=== PATIENT | female | born 1975 | race Caucasian/White ===

== ENCOUNTER 2019-02-14 13:40 | Emergency (ER) | payer BC, SELFPAY ==
[2019-02-14] VITALS (14 sets, daily range): BP systolic 160–187; BP diastolic 81–119; PULSE 71–93; RESP 11–26; TEMP 35.7; O2SAT 94–100; BMI 39.6
--- NOTE | 2019-02-14 13:43 | ED.RN ---
COULD NOT OBTAIN BLOOD PRESSURE IN TRIAGE PATIENT IS IN TOO MUCH PAIN
--- NOTE | 2019-02-14 13:54 | RAD_ITS ---
STUDY: X-RAY - RIGHT ELBOW REASON FOR EXAM: Female, 43 years old. Shoulder pain. Fall. TECHNIQUE: 3 view(s) of the elbow. COMPARISON: None. FINDINGS: No acute fracture, dislocation or osseous destruction. Minimal spurring at the lateral of the condyle. No significant soft tissue swelling. No significant joint effusion. RAD/Elbow min 3 Views IMPRESSION: Right elbow intact Electronically Signed: Edison Sosa DO at 14:45 EDT Tel , Service support ,
--- NOTE | 2019-02-14 13:54 | RAD_ITS ---
STUDY: X-RAY - RIGHT SHOULDER REASON FOR EXAM: Female, 43 years old. Shoulder pain. Fall. TECHNIQUE: 2 view(s) of the shoulder. COMPARISON: None. FINDINGS: Acute anterior shoulder dislocation. No acute fracture line. No acute cortical destruction. No significant degenerative changes. No significant soft tissue swelling. Visualized right lung unremarkable. RAD/Shoulder min 2 Views IMPRESSION: Acute right anterior shoulder dislocation Electronically Signed: Edison Sosa DO at 14:46 EDT Tel , Service support ,
--- NOTE | 2019-02-14 13:54 | ED.VIS.UPPEX ---
History of Present Illness Chief Complaint: Upper Extremity Injury Informant: Patient Occurred: Today - FERNANDO Mechanism/Context: Injury, Fall Context: Sudden Onset Timing: Continuous Location: R shoulder and elbow Current Severity: Severe Maximum Severity: Severe Worsened by: moving Relieved by: remaining still Associated Symptoms: Loss of Funtion. Negative for: Parasthesia, Weakness Narrative: Patient states she tripped on concrete when her ankle gave out on the way out of work today, falling to her right shoulder with severe acute pain. Also in her elbow. No numbness. No other injury. She states she has had multiple falls in the last several months, she has never had any prodromal symptoms of dizziness, chest discomfort, shortness of breath, or vertigo. RHD. - Past Medical History (1) Depression Status: Chronic (2) Diabetes mellitus, type 2 Status: Chronic (3) GERD (gastroesophageal reflux disease) Status: Chronic Past Medical History - Allergies and Home Meds Allergies/Adverse Reactions: Allergies No Known Allergies Allergy (Verified 02/14/19 14:19) Primary Care Physician: Alex Cavazos MD [STAFF PHYSICIAN] - As soon as possible (Call for appointment to be seen within the next 1-2 weeks) Lives: With Family Smoking Status: Never smoker Drugs: None Review of Systems General: Denies: Chills, Fever, Sweats Eyes: Denies: Visual changes - bilaterally, Diplopia ENT: Denies: Rhinorrhea, Sore throat Cardiovascular: Denies: Chest pain, Palpitations Respiratory: Denies: Dyspnea, Cough, Dyspnea on exertion Gastrointestinal: Denies: Abdominal pain, Nausea, Vomiting, Diarrhea, Melena, Hematochezia Genitourinary: Denies: Dysuria, Hematuria, Frequency Musculoskeletal: Reports: Extremity Pain. Denies: Neck pain, Back pain Skin: Denies: Rash, Wounds Neurological: Denies: Headache, Weakness, Numbness Physical Exam Vital Signs/Narrative: Vital Signs Temp Pulse Resp Pulse Ox 02/14/19 13:40 96.3 F L 71 22 H 100 Inital Vital Signs reviewed: Yes Right Shoulder: Limited ROM - holding in position of comfort. cannot move. sensation lateral shoulder intact. unable to rule out deformity due to obesity. Right Elbow: Limited ROM - tender mildly diffusely. painless sup/pron. General: Well nourished, Well developed, Obese Head: Normocephalic, Atraumatic Eyes: Perrl, EOMI ENT: No Trauma, Moist Mucous Membranes Neck: Nontender, Full ROM. Negative for: Spinal Tenderness Cardiovascular: Regular rate, Regular rhythm, No murmurs Respiratory: No distress, CTA bilaterally, Chest nontender - including clavicle and ACJ on right. Skin: Normal color, No rash, No Trauma Neurological: Alert, Oriented x3, Cranial nerves II-XII grossly intact, Normal Strength, Normal Sensation Psychological: Normal affect Diagnostic/Tx/Re-eval Clinical Impression(s) from Imaging Studies Elbow X-Ray 02/14/19 13:54 IMPRESSION: Right elbow intact Electronically Signed: Edison Sosa DO at 14:45 EDT Tel , Service support , Shoulder X-Ray 02/14/19 13:54 IMPRESSION: Acute right anterior shoulder dislocation Electronically Signed: Edison Sosa DO at 14:46 EDT Tel , Service support , Shoulder X-Ray 02/14/19 16:01 IMPRESSION: Stable anterior and inferior dislocation of the humeral head relative to the glenoid. Electronically Signed: Tr Newberry, at 16:47 EDT Tel , Service support , Shoulder X-Ray 02/14/19 16:20 IMPRESSION: Stable anterior and inferior dislocation of the humeral head relative to the glenoid. Electronically Signed: Tr Newberry, at 16:47 EDT Tel , Service support , Shoulder X-Ray 02/14/19 17:01 IMPRESSION: Status post reduction of the previously seen right shoulder dislocation with satisfactory alignment. Electronically Signed: Tr Newberry, at 18:00 EDT Tel , Service support , - Medical Decision Making Initial x-rays of the shoulder and elbow were obtained and showed no fractures but the shoulder is dislocated anteriorly. As described in the procedures, procedural sedation with propofol went uneventfully, however the good tactile feedback from the closed reduction falsely indicated successful reduction x2. A third attempt was necessary and reduction is complete. She is neurovascularly intact distally. She will be discharged home with a prescription for Percocet and follow-up with orthopedics. Procedures Procedure(s): 1. Procedural sedation --just over 1 mg/kg of IV propofol administered each of 3 times, after patient was n.p.o. for over 6 hours. Patient was monitored and with oxygen with constant nursing supervision. There were no complications and the patient awoke a short time after each procedure. 2. Closed right shoulder reduction --after patient was sedated, I was able to easily reduce the right shoulder using the Milch procedure on first attempt. There was good tactile feedback with a clunk. However, x-ray showed that the humeral head was not reduced. We repeated the procedure, sedating her again, this time performing traction-countertraction, with the same result in good tactile feedback, but by the time post reduction was obtained the patient woke up and again showed that it was not reduced. We performed this a third time with x-ray at the bedside, the reduction took very little force with distraction manually, and x-ray shows good reduction. Placed in sling and swath. Upon waking up after the third attempt, patient can tell that it feels much better. Neurovascularly intact distally after placement in sling, including axillary nerve distribution. ED Disposition - Plan for ED Patient: Disposition: Home or Assisted Living Diagnosis: Closed anterior dislocation of right shoulder Instructions: ED Dislocation Shoulder Redu Prescriptions: Oxycodone HCl/Acetaminophen [Percocet 5/325] 1 tablet PO Q6H PRN PRN 3 Days #12 tablet PRN Reason: Pain Referrals: Alex Cavazos MD [STAFF PHYSICIAN] - As soon as possible (Call for appointment to be seen within the next 1-2 weeks)
--- NOTE | 2019-02-14 14:12 | ED.DCSUM_ITS ---
History of Present Illness Chief Complaint: Upper Extremity Injury Informant: Patient Occurred: Today - FERNANDO Mechanism/Context: Injury, Fall Context: Sudden Onset Timing: Continuous Location: R shoulder and elbow Current Severity: Severe Maximum Severity: Severe Worsened by: moving Relieved by: remaining still Associated Symptoms: Loss of Funtion. Negative for: Parasthesia, Weakness Narrative: Patient states she tripped on concrete when her ankle gave out on the way out of work today, falling to her right shoulder with severe acute pain. Also in her elbow. No numbness. No other injury. She states she has had multiple falls in the last several months, she has never had any prodromal symptoms of dizziness, chest discomfort, shortness of breath, or vertigo. RHD. - Past Medical History (1) Depression Status: Chronic (2) Diabetes mellitus, type 2 Status: Chronic (3) GERD (gastroesophageal reflux disease) Status: Chronic Past Medical History - Allergies and Home Meds Allergies/Adverse Reactions: Allergies No Known Allergies Allergy (Verified 02/14/19 14:19) Primary Care Physician: Alex Cavazos MD [STAFF PHYSICIAN] - As soon as possible (Call for appointment to be seen within the next 1-2 weeks) Lives: With Family Smoking Status: Never smoker Drugs: None Review of Systems General: Denies: Chills, Fever, Sweats Eyes: Denies: Visual changes - bilaterally, Diplopia ENT: Denies: Rhinorrhea, Sore throat Cardiovascular: Denies: Chest pain, Palpitations Respiratory: Denies: Dyspnea, Cough, Dyspnea on exertion Gastrointestinal: Denies: Abdominal pain, Nausea, Vomiting, Diarrhea, Melena, Hematochezia Genitourinary: Denies: Dysuria, Hematuria, Frequency Musculoskeletal: Reports: Extremity Pain. Denies: Neck pain, Back pain Skin: Denies: Rash, Wounds Neurological: Denies: Headache, Weakness, Numbness Physical Exam Vital Signs/Narrative: Vital Signs Temp Pulse Resp Pulse Ox 02/14/19 13:40 96.3 F L 71 22 H 100 Inital Vital Signs reviewed: Yes Right Shoulder: Limited ROM - holding in position of comfort. cannot move. sensation lateral shoulder intact. unable to rule out deformity due to obesity. Right Elbow: Limited ROM - tender mildly diffusely. painless sup/pron. General: Well nourished, Well developed, Obese Head: Normocephalic, Atraumatic Eyes: Perrl, EOMI ENT: No Trauma, Moist Mucous Membranes Neck: Nontender, Full ROM. Negative for: Spinal Tenderness Cardiovascular: Regular rate, Regular rhythm, No murmurs Respiratory: No distress, CTA bilaterally, Chest nontender - including clavicle and ACJ on right. Skin: Normal color, No rash, No Trauma Neurological: Alert, Oriented x3, Cranial nerves II-XII grossly intact, Normal Strength, Normal Sensation Psychological: Normal affect Diagnostic/Tx/Re-eval Clinical Impression(s) from Imaging Studies Elbow X-Ray 02/14/19 13:54 IMPRESSION: Right elbow intact Electronically Signed: Edison Sosa DO at 14:45 EDT Tel , Service support , Shoulder X-Ray 02/14/19 13:54 IMPRESSION: Acute right anterior shoulder dislocation Electronically Signed: Edison Sosa DO at 14:46 EDT Tel , Service support , Shoulder X-Ray 02/14/19 16:01 IMPRESSION: Stable anterior and inferior dislocation of the humeral head relative to the glenoid. Electronically Signed: Tr Newberry, at 16:47 EDT Tel , Service support , Shoulder X-Ray 02/14/19 16:20 IMPRESSION: Stable anterior and inferior dislocation of the humeral head relative to the glenoid. Electronically Signed: Tr Newberry, at 16:47 EDT Tel , Service support , Shoulder X-Ray 02/14/19 17:01 IMPRESSION: Status post reduction of the previously seen right shoulder dislocation with satisfactory alignment. Electronically Signed: Tr Newberry, at 18:00 EDT Tel , Service support , - Medical Decision Making Initial x-rays of the shoulder and elbow were obtained and showed no fractures but the shoulder is dislocated anteriorly. As described in the procedures, procedural sedation with propofol went uneventfully, however the good tactile feedback from the closed reduction falsely indicated successful reduction x2. A third attempt was necessary and reduction is complete. She is neurovascularly intact distally. She will be discharged home with a prescription for Percocet and follow-up with orthopedics. Procedures Procedure(s): 1. Procedural sedation --just over 1 mg/kg of IV propofol administered each of 3 times, after patient was n.p.o. for over 6 hours. Patient was monitored and with oxygen with constant nursing supervision. There were no complications and the patient awoke a short time after each procedure. 2. Closed right shoulder reduction --after patient was sedated, I was able to easily reduce the right shoulder using the Milch procedure on first attempt. There was good tactile feedback with a clunk. However, x-ray showed that the humeral head was not reduced. We repeated the procedure, sedating her again, this time performing traction-countertraction, with the same result in good tactile feedback, but by the time post reduction was obtained the patient woke up and again showed that it was not reduced. We performed this a third time with x-ray at the bedside, the reduction took very little force with distraction manually, and x-ray shows good reduction. Placed in sling and swath. Upon waking up after the third attempt, patient can tell that it feels much better. Neurovascularly intact distally after placement in sling, including axillary nerve distribution. ED Disposition - Plan for ED Patient: Disposition: Home or Assisted Living Diagnosis: Closed anterior dislocation of right shoulder Instructions: ED Dislocation Shoulder Redu Prescriptions: Oxycodone HCl/Acetaminophen [Percocet 5/325] 1 tablet PO Q6H PRN PRN 3 Days #12 tablet PRN Reason: Pain Referrals: Alex Cavazos MD [STAFF PHYSICIAN] - As soon as possible (Call for appointment to be seen within the next 1-2 weeks)
[2019-02-14] MEDS: Ondansetron 4 MG/2 ML Vial IV (14:13)
[2019-02-14] MEDS: Morphine 4 MG/ML Syringe IV ×2 (14:13→16:38)
--- NOTE | 2019-02-14 16:01 | RAD_ITS ---
STUDY: X-RAY - RIGHT SHOULDER REASON FOR EXAM: Female, 43 years old. Post reduction TECHNIQUE: 1 view(s) of the shoulder. COMPARISON: 02/14/2019 FINDINGS: Again noted is anterior and inferior dislocation of the humeral head relative to the glenoid. There is no fracture identified. There are no radiodense foreign bodies. RAD/Shoulder One View IMPRESSION: Stable anterior and inferior dislocation of the humeral head relative to the glenoid. Electronically Signed: Tr Newberry, at 16:47 EDT Tel , Service support ,
[2019-02-14] MEDS: Propofol 200 MG/20 ML Vial IV BOLUS (16:05)
--- NOTE | 2019-02-14 16:20 | RAD_ITS ---
STUDY: X-RAY - RIGHT SHOULDER REASON FOR EXAM: Female, 43 years old. Post reduction TECHNIQUE: 1 view(s) of the shoulder. COMPARISON: 02/14/2019 FINDINGS: Again noted is anterior and inferior dislocation of the humeral head relative to the glenoid There is no fracture identified. There are no radiodense foreign bodies. RAD/Shoulder One View IMPRESSION: Stable anterior and inferior dislocation of the humeral head relative to the glenoid. Electronically Signed: Tr Newberry, at 16:47 EDT Tel , Service support ,
--- NOTE | 2019-02-14 17:01 | RAD_ITS ---
STUDY: X-RAY - RIGHT SHOULDER REASON FOR EXAM: Female, 43 years old. Post reduction TECHNIQUE: 1 view(s) of the shoulder. COMPARISON: 02/14/2019 FINDINGS: The previously seen right shoulder dislocation has been reduced. The alignment is satisfactory. There is no fracture identified. RAD/Shoulder One View IMPRESSION: Status post reduction of the previously seen right shoulder dislocation with satisfactory alignment. Electronically Signed: Tr Newberry, at 18:00 EDT Tel , Service support ,
== END 2019-02-14 18:16 | disposition home or self-care (01) ==
PROVIDERS: Emergency Provider Emergency Medicine; Family Provider Family Medicine; PCP Family Medicine
DX: S43.014A Anterior dislocation of right humerus, initial encounter (principal); E11.9 Type 2 diabetes mellitus without complications; K21.9 Gastro-esophageal reflux disease without esophagitis; F32.9 Major depressive disorder, single episode, unspecified; Z79.84 Long term (current) use of oral hypoglycemic drugs; Z79.899 Other long term (current) drug therapy; W01.0XXA Fall on same level from slipping, tripping and stumbling without subsequent striking against object, initial encounter; Y93.01 Activity, walking, marching and hiking; Y92.89 Other specified places as the place of occurrence of the external cause; Y99.8 Other external cause status
CPT/HCPCS: 23650; 73020; 73030; 73080; 96374; 96375; 96376; 99285; J7030; A4216; J2405

== ENCOUNTER 2019-09-06 12:36 | Emergency (ER) | payer BC, SELFPAY ==
[2019-02-14 13:40] VITALS: BMI 39.6
[2019-09-06 12:37] VITALS: BP 156/88; PULSE 79; RESP 16; TEMP 36.4; O2SAT 98; BMI 39.3
--- NOTE | 2019-09-06 13:05 | CT_ITS ---
STUDY: CT BRAIN WITHOUT CONTRAST REASON FOR EXAM: Female, 44 years old. Injury to the right side of the head following a fall RADIATION DOSAGE (If Supplied By Facility): CTDIvol = ( 44.99 ) mGy, DLP = ( 745.49 ) mGycm TECHNIQUE: Transaxial CT imaging of the brain was performed without administration of intravenous contrast material. Individualized dose optimization techniques were used for this CT. COMPARISON: No relevant priors. FINDINGS: Normal soft tissue structures. Normal calvarium. Normal size ventricles and extra-axial spaces for the patient''s age. Normal white matter tracts of the cerebral hemispheres. Normal basal ganglia and thalami. Normal brainstem. Normal cerebellum. There is no intracranial hemorrhage. There are no findings of an acute ischemic infarction. Normal visualized paranasal sinuses. CT/Brain/Head without Contrast IMPRESSION: Normal unenhanced CT scan of the brain. Electronically Signed: Fawad Ivesron, at 13:45 EST , Service support ,
--- NOTE | 2019-09-06 13:08 | ED.VIS.GEN ---
History of Present Illness Chief Complaint: Head Injury Informant: Patient Onset: Yesterday Current Severity: Mild Narrative: Head injury after fall yesterday Patient indicates she stumbled and fell yesterday striking part of her car she has pain to the right frontal area, she had no LOC she has no neck pain no nausea vomiting no change in vision no numbness weakness paresthesias Taking anti-inflammatory medications reports that helps her pain but she feels the pain has not moved from the right forehead area to the left forehead area she has a prior history for gastric sleeve otherwise has been healthy no other complaints Past Medical History - Allergies and Home Meds Allergies/Adverse Reactions: Allergies No Known Allergies Allergy (Verified 02/14/19 14:19) Primary Care Physician: John Simon MD [Primary Care Provider] - Past Medical History: - - gastric sleeve Smoking Status: Never smoker Review of Systems General: Reports: - - Her complaint is pain to the right frontal area otherwise HEENT exam neuro exam negative. Denies: Chills, Fever, Sweats Eyes: Denies: Visual changes - bilaterally, Diplopia ENT: Denies: Rhinorrhea, Sore throat Cardiovascular: Denies: Chest pain, Palpitations Respiratory: Denies: Dyspnea, Cough, Dyspnea on exertion Gastrointestinal: Denies: Abdominal pain, Nausea, Vomiting, Diarrhea, Melena, Hematochezia Genitourinary: Denies: Dysuria, Hematuria, Frequency Musculoskeletal: Denies: Back pain, Extremity Pain Skin: Denies: Rash, Wounds Neurological: Denies: Headache, Weakness, Numbness Physical Exam Vital Signs/Narrative: Vital Signs Temp Pulse Resp BP Pulse Ox 09/06/19 12:37 97.5 F L 79 16 156/88 H 98 General: Well nourished, Well developed, No Acute Distress Head: Normocephalic, Atraumatic, - - Chest discomfort to palpation over the right frontal area of the HEENT exam is otherwise unremarkable her neck is nontender her neurologic exam is entirely normal Eyes: Perrl, EOMI ENT: Moist mucous membranes, No rhinorrhea Neck: Supple, Nontender Cardiovascular: Regular rate, Regular rhythm, No murmurs Respiratory: No distress, CTA bilaterally, Chest nontender Abdomen: Soft, Nontender, Nondistended, Normal bowel sounds Back: Nontender, Normal Inspection Extremities: Nontender, No edema Skin: Normal color, No rash Neurological: Alert, Oriented x3, Cranial nerves II-XII grossly intact, Normal Strength, Normal Sensation Psychological: Normal affect, Normal Mood Diagnostic/Tx/Re-eval - Medical Decision Making Given all of the above and her description we will obtain CT of the head she has no neck tenderness to palpation or movement she is concerned about the persistence of the headache and I explained to her that given the mechanism the CT ordered to look for signs of injury is unremarkable it would generally be safe to have her follow-up as an outpatient she concurs with that she indicates that the nonsteroidals are helping but she is taking quite a few of them so we will add [place] to use as a rescue medicine at bedtime ice to the head and have her follow-up with her physicians ED Disposition - Plan for ED Patient: Referrals: John Simon MD [Primary Care Provider] -
[2019-09-06 14:21] VITALS: PULSE 77; RESP 18
== END 2019-09-06 14:22 | disposition home or self-care (01) ==
PROVIDERS: Emergency Provider Emergency Medicine; Family Provider Family Medicine; PCP Family Medicine
DX: S09.90XA Unspecified injury of head, initial encounter (principal); W01.198A Fall on same level from slipping, tripping and stumbling with subsequent striking against other object, initial encounter; Y93.89 Activity, other specified; Y92.89 Other specified places as the place of occurrence of the external cause; Y99.8 Other external cause status
CPT/HCPCS: 70450; 99283

== ENCOUNTER → 2019-11-02 08:22 | Outpatient (CLI) | payer BC, SELFPAY ==
[2019-10-31 14:09] VITALS: BMI 39.3
[2019-11-02 12:36] LABS: Absolute Lymphocyte Count 2.98 X10^3/uL (0.83-4.51); Absolute Neutrophil Count 4.4 X10^3/uL (2.0-7.7); Basophil# 0.08 X10^3/uL; Eosinophil# 0.14 X10^3/uL; Eosinophils% 1.7 % (0-5); Hematocrit 39.3 % (37-47); Hemoglobin 11.8 g/dL (12.0-15.0); Lymphocyte # 2.98 X10^3/ul (4.0); Lymphocyte % 36.2 % (19-41); Mean Corpuscular Hgb 23.8 pg (27.0-32.0); Mean Corpuscular Volume 79.2 fL (81-99); Mean Platelet Vol. 10.9 fl (6.2-12.0); Monocyte# 0.62 X10^3/uL; Monocyte% 7.5 % (0-10); NRBC Flagged by Analyzer 0 % (0-5); Neutrophil # 4.38 X10^3/uL (2.7-7.7); Neutrophil % 53.2 % (47-70); Platelet Count 405 K/mm3 (150-450); RBC Distribution Width CV 16.5 % (11.6-14.6); RBC Distribution Width SD 46.9 fl (35.1-43.9); Red Blood Count 4.96 M/mm3 (4.2-5.4); White Blood Count 8.2 K/mm3 (4.4-11.0)
[2019-11-02 12:55] LABS: Hemoglobin A1c 6.5 % (4.2-6.3)
[2019-11-02 13:20] LABS: ALB/GLOB Ratio 1.1 RATIO (0.9-2.4); AST(SGOT) 16 U/L (15-37); Alanine Aminotransfer ALT/SGPT 28 U/L (13-56); Albumin, Serum 3.6 g/dL (3.2-5.0); Alkaline Phosphatase 54 U/L (45-117); Anion Gap 5 (5-15); BUN 16 mg/dL (7-18); BUN/Creat Ratio 17.7 RATIO (10-20); Chloride 106 mmol/L (98-107); Cholesterol 208 mg/dL (200); EST Glomerular Filtration Rate 71 mL/min (>60); Est Glom Filt Rate - Afr Amer 86 mL/min (>60); Globulin 3.3 g/dL (2.2-4.2); Glucose 119 mg/dL (74-106); High Density Lipoprotein 52 mg/dL; Potassium 4.4 mmol/L (3.5-5.1); Protein, Total 6.9 g/dL (6.4-8.2); Sodium Level 139 mmol/L (136-145); Thyroid Stim Hormone (TSH) 1.18 uIU/mL (0.358-3.74); Triglycerides 185 mg/dL; Very Low Density Lipoprotein 37 mg/dL (5-40)
[2019-11-02 13:35] LABS: Microalbumin,Random Urine 7.5 mg/L (NO RANGE EST.); Microalbumin:Creatinine Ratio 4.6 mg/g CRE (<30 mg/g CRE)
== END ==
PROVIDERS: PCP Internal Medicine; Referring Provider Internal Medicine; Visit Provider Internal Medicine
DX: I10 Essential (primary) hypertension (principal); K21.9 Gastro-esophageal reflux disease without esophagitis; E11.9 Type 2 diabetes mellitus without complications; Z13.29 Encounter for screening for other suspected endocrine disorder
CPT/HCPCS: 36415; 80053; 80061; 82043; 82570; 83036; 84439; 84443; 85025

== ENCOUNTER → 2019-11-21 10:56 | Outpatient (CLI) | payer BC, SELFPAY ==
[2019-10-31 14:09] VITALS: BMI 39.3
== END ==
PROVIDERS: PCP Internal Medicine; Referring Provider Internal Medicine; Visit Provider Internal Medicine
DX: G47.10 Hypersomnia, unspecified (principal)
CPT/HCPCS: 95806

== ENCOUNTER → 2020-01-29 | Outpatient (CLI) | payer BC, SELFPAY ==
[2019-12-07 13:02] VITALS: BMI 39.3
[2020-01-29 10:07] VITALS: BMI 39.3
== END | disposition home or self-care (01) ==
LOC: SL 13:00
PROVIDERS: PCP Internal Medicine; Visit Provider Nurse Practitioner Acute Care
DX: Z46.89 Encounter for fitting and adjustment of other specified devices (principal)

== ENCOUNTER → 2020-01-30 17:31 | Outpatient (CLI) | payer BC, SELFPAY ==
[2019-12-07 13:02] VITALS: BMI 39.3
[2020-01-29 10:07] VITALS: BMI 39.3
== END ==
PROVIDERS: PCP Internal Medicine; Visit Provider Nurse Practitioner Acute Care
DX: Z46.89 Encounter for fitting and adjustment of other specified devices (principal)

== ENCOUNTER → 2020-04-14 | Outpatient (CLI) | payer BC, SELFPAY ==
[2020-02-13 10:58] VITALS: BMI 39.3
[2020-04-14 15:29] LABS: Anion Gap 5 (5-15); BUN 12 mg/dL (7-18); BUN/Creat Ratio 13.2 RATIO (10-20); Calcium,Total 8.7 mg/dL (8.5-10.1); Chloride 109 mmol/L (98-107); Creatinine, Serum 0.91 mg/dL (0.55-1.02); EST Glomerular Filtration Rate 71 mL/min (>60); Est Glom Filt Rate - Afr Amer 86 mL/min (>60); Glucose 177 mg/dL (74-106); Potassium 4.3 mmol/L (3.5-5.1); Sodium Level 138 mmol/L (136-145)
== END | disposition home or self-care (01) ==
LOC: BIMLAB 13:19
PROVIDERS: PCP Internal Medicine; Referring Provider Internal Medicine; Visit Provider Internal Medicine
DX: I10 Essential (primary) hypertension (principal)
CPT/HCPCS: 36415; 80048

== ENCOUNTER → 2021-02-16 10:14 | Outpatient (CLI) | payer BC, SELFPAY ==
[2021-02-06 14:22] VITALS: BMI 39.0
--- NOTE | 2021-02-16 10:14 | US_ITS ---
STUDY: ULTRASOUND - URINARY BLADDER REASON FOR EXAM: Female, 45 years old. Incomplete Emptying TECHNIQUE: Ultrasound evaluation of the urinary bladder was performed with real-time and static lino-scale imaging. COMPARISON: None. FINDINGS: There is no right UVJ calculus. There is a visualized right ureteral jet. There is no left UVJ calculus. There is a visualized left ureteral jet. The distended volume of the urinary bladder is 149.86 ml. The empty volume of the urinary bladder is 10.29 ml. The bladder wall is within normal limits. The bladder wall measures 3 mm. There is no demonstrated bladder wall mass lesion. There are no demonstrated bladder calculi. US/Post Void Residual Bladder IMPRESSION: No suspicious sonographic findings, minimal post void residual, not enough to place patient at risk for urinary reflux or UTIs. Electronically Signed: Elliott Ware MD at 11:59 EDT , Service support ,
== END ==
PROVIDERS: PCP Internal Medicine; Referring Provider Internal Medicine; Visit Provider Internal Medicine
DX: R33.9 Retention of urine, unspecified (principal)
CPT/HCPCS: 51798

== ENCOUNTER → 2021-05-04 12:04 | Outpatient (CLI) | payer BC, SELFPAY ==
[2021-05-04 11:31] VITALS: BMI 39.0
[2021-05-04 15:06] LABS: Absolute Lymphocyte Count 3.78 X10^3/uL (0.83-4.51); Absolute Neutrophil Count 4.8 X10^3/uL (2.0-7.7); Basophil# 0.07 X10^3/uL; Basophil% 0.7 % (0-1); Eosinophil# 0.13 X10^3/uL; Eosinophils% 1.4 % (0-5); Hemoglobin 12.4 g/dL (12.0-15.0); Lymphocyte # 3.78 X10^3/ul (0.83-4.51); Lymphocyte % 40.3 % (19-41); Mean Corp Hgb Conc 30.2 g/dL (32-36); Mean Corpuscular Hgb 24.7 pg (27.0-32.0); Mean Corpuscular Volume 81.5 fL (81-99); Mean Platelet Vol. 11.5 fl (6.2-12.0); Monocyte# 0.56 X10^3/uL; NRBC Flagged by Analyzer 0 % (0-5); Neutrophil # 4.78 X10^3/uL (2.7-7.7); Neutrophil % 51.1 % (47-70); Platelet Count 437 K/mm3 (150-450); RBC Distribution Width CV 15.9 % (11.6-14.6); RBC Distribution Width SD 46.6 fl (35.1-43.9); Red Blood Count 5.03 M/mm3 (4.2-5.4); White Blood Count 9.4 K/mm3 (4.4-11.0)
[2021-05-04 15:18] LABS: AST(SGOT) 20 U/L (15-37); Alanine Aminotransfer ALT/SGPT 39 U/L (13-56); Albumin, Serum 3.7 g/dL (3.2-5.0); Alkaline Phosphatase 62 U/L (45-117); Anion Gap 4 (5-15); BUN 16 mg/dL (7-18); BUN/Creat Ratio 18.1 RATIO (10-20); Chloride 103 mmol/L (98-107); Cholesterol 217 mg/dL (200); Creatinine, Serum 0.88 mg/dL (0.55-1.02); EST Glomerular Filtration Rate 73 mL/min (>60); Est Glom Filt Rate - Afr Amer 88 mL/min (>60); Globulin 3.7 g/dL (2.2-4.2); Glucose 108 mg/dL (74-106); High Density Lipoprotein 54 mg/dL; Potassium 4.2 mmol/L (3.5-5.1); Protein, Total 7.4 g/dL (6.4-8.2); Sodium Level 135 mmol/L (136-145); Triglycerides 253 mg/dL; Very Low Density Lipoprotein 51 mg/dL (5-40)
== END ==
PROVIDERS: PCP Internal Medicine; Visit Provider Internal Medicine
DX: E11.9 Type 2 diabetes mellitus without complications (principal); I10 Essential (primary) hypertension
CPT/HCPCS: 36415; 80053; 80061; 85025

== ENCOUNTER → 2021-06-26 | Outpatient (CLI) | payer BC, SELFPAY | END | disposition home or self-care (01) | LOC: LABSPEC 15:26 | PROVIDERS: PCP Internal Medicine; Referring Provider Physician Assistant; Visit Provider Physician Assistant | DX: R05 Cough (principal) | CPT/HCPCS: 87635; U0005; U0003 ==

== ENCOUNTER → 2022-05-18 | Outpatient (CLI) | payer BC, SELFPAY | END | disposition home or self-care (01) | LOC: BIMLAB 15:06 → LABSPEC 15:08 | PROVIDERS: PCP Internal Medicine; Referring Provider Physician Assistant; Visit Provider Physician Assistant | DX: R52 Pain, unspecified (principal); Z20.822 Contact with and (suspected) exposure to COVID-19 | CPT/HCPCS: 87635; U0003; U0005 ==

== ENCOUNTER → 2022-08-23 | Outpatient (CLI) | payer BC, SELFPAY ==
[2022-08-23 12:20] LABS: Absolute Lymphocyte Count 3.41 X10^3/uL (0.83-4.51); Absolute Neutrophil Count 5.4 X10^3/uL (2.0-7.7); Basophil# 0.05 X10^3/uL; Basophil% 0.5 % (0-1); Eosinophil# 0.06 X10^3/uL; Eosinophils% 0.6 % (0-5); Hematocrit 40.1 % (37-47); Hemoglobin 12.5 g/dL (12.0-15.0); Lymphocyte # 3.41 X10^3/ul (0.83-4.51); Lymphocyte % 35.6 % (19-41); Mean Corp Hgb Conc 31.2 g/dL (32-36); Mean Corpuscular Hgb 27.2 pg (27.0-32.0); Mean Corpuscular Volume 87.2 fL (81-99); Mean Platelet Vol. 10.5 fl (6.2-12.0); Monocyte# 0.57 X10^3/uL; NRBC Flagged by Analyzer 0 % (0-5); Neutrophil # 5.43 X10^3/uL (2.7-7.7); Neutrophil % 56.8 % (47-70); Platelet Count 375 K/mm3 (150-450); RBC Distribution Width CV 14.2 % (11.6-14.6); White Blood Count 9.6 K/mm3 (4.4-11.0)
[2022-08-23 12:53] LABS: ALB/GLOB Ratio 0.9 RATIO (0.9-2.4); AST(SGOT) 15 U/L (15-37); Alanine Aminotransfer ALT/SGPT 24 U/L (13-56); Alkaline Phosphatase 39 U/L (45-117); Anion Gap 5 (5-15); BUN 17 mg/dL (7-18); BUN/Creat Ratio 21.9 RATIO (10-20); Calcium,Total 8.8 mg/dL (8.5-10.1); Chloride 105 mmol/L (98-107); Cholesterol 216 mg/dL (200); Creatinine, Serum 0.78 mg/dL (0.55-1.02); EST Glomerular Filtration Rate 84 mL/min (>60); Est Glom Filt Rate - Afr Amer 102 mL/min (>60); Globulin 3.2 g/dL (2.2-4.2); Glucose 119 mg/dL (74-106); High Density Lipoprotein 55 mg/dL; Potassium 4.6 mmol/L (3.5-5.1); Protein, Total 6.2 g/dL (6.4-8.2); Sodium Level 138 mmol/L (136-145); Triglycerides 525 mg/dL
[2022-08-23 13:32] LABS: Hemoglobin A1c 5.7 % (3.8-5.6)
== END | disposition home or self-care (01) ==
LOC: BIMLAB 11:24
PROVIDERS: PCP Internal Medicine; Visit Provider Internal Medicine
DX: I10 Essential (primary) hypertension (principal); E11.9 Type 2 diabetes mellitus without complications
CPT/HCPCS: 36415; 80053; 80061; 83036; 85025

== ENCOUNTER 2022-09-07 10:00 | Outpatient (CLI) | payer BC, SELFPAY | END 2022-09-07 23:59 | disposition home or self-care (01) | PROVIDERS: PCP Internal Medicine; Visit Provider Internal Medicine | DX: G47.33 Obstructive sleep apnea (adult) (pediatric) (principal) | CPT/HCPCS: 98960; G0463 ==

== ENCOUNTER → 2022-10-27 | Outpatient (CLI) | payer BC, SELFPAY ==
[2022-10-27 16:50] LABS: Cholesterol 244 mg/dL (200); High Density Lipoprotein 63 mg/dL; Triglycerides 379 mg/dL; Very Low Density Lipoprotein 76 mg/dL (5-40)
== END | disposition home or self-care (01) ==
LOC: BIMLAB 14:56
PROVIDERS: PCP Internal Medicine; Referring Provider Internal Medicine; Visit Provider Internal Medicine
DX: E78.5 Hyperlipidemia, unspecified (principal)
CPT/HCPCS: 36415; 80061

== ENCOUNTER 2022-11-05 15:43 | Emergency (ER) | payer BC, SELFPAY ==
[2022-11-05 15:45] VITALS: BP 151/88; PULSE 86; RESP 17; TEMP 36.9; O2SAT 100; BMI 37.6
--- NOTE | 2022-11-05 15:58 | EDS_ITS ---
HPI History of Present Illness Chief Complaint: Allergic Reaction Informant: patient Onset/Context/Timing Onset: Today Context: Sudden Onset Timing: Continuous Quality: Itching, swelling Location: Face, neck, throat Worsened by: Nothing Relieved by: Benadryl Narrative Narrative: Patient presents with an allergic reaction that began today. Patient states she started gemfibrozil today and took her first dose this morning. Patient states she then started feeling some itching and swelling in her face and neck while she was at work. Patient states she left work and went home and took a dose of Benadryl. Patient states this started to help with the itching. Patient called her primary care physician and was seen there today and then was referred to the emergency department. Patient admits to some heaviness in her chest. Patient denies any difficulty swallowing or difficulty breathing. Patient states her mouth feels dry. [facility] Medical History Alcohol use Anemia Anxiety Back pain Back problem Bone fracture Bronchitis Chronic headaches Colon cancer screening CPAP (continuous positive airway pressure) dependence Diabetes Dietary restriction DVT (deep venous thrombosis) Gastric reflux GERD (gastroesophageal reflux disease) GI problem H/O blood clots H/O urinary tract infection Health care maintenance History of edema Hormone deficiency HTN (hypertension) Hyperlipidemia Hypertension IBS (irritable bowel syndrome) Incomplete emptying of bladder Leg cramps Migraine headache Non-smoker DIMITRI (obstructive sleep apnea) Polycystic ovaries Seasonal allergies Seasonal allergies Shortness of breath on exertion Vitamin deficiency Home Medications blood pressure monitor #1 ea 10/31/20 [Rx Last Taken Unknown] blood sugar diagnostic (FreeStyle Lite Strips) #100 ea 10/31/20 [Rx Last Taken Unknown] blood-glucose meter (FreeStyle Lite Meter kit) #1 ea 10/31/20 [Rx Last Taken Unknown] lancets 28 gauge (FreeStyle Lancets) #200 ea 10/31/20 [Rx Last Taken Unknown] diclofenac sodium 1 % topical gel 4 g topical ONCE PRN joint pain #100 grams 06/22/21 [Rx Last Taken Unknown] duloxetine 60 mg capsule,delayed release 60 mg PO DAILY #90 caps 01/04/22 [Rx Last Taken Unknown] levocetirizine 5 mg tablet (Xyzal) 5 mg PO QPM #90 tabs 01/12/22 [Rx Last Taken Unknown] montelukast 10 mg tablet (Singulair) 10 mg PO QPM #90 tabs 01/12/22 [Rx Last Taken Unknown] estradiol 1 mg tablet 2 mg PO DAILY 02/22/22 [History Last Taken Unknown] spironolactone 100 mg tablet 100 mg PO DAILY #90 tabs 03/02/22 [Rx Last Taken Unknown] metformin 500 mg tablet,extended release 24 hr 1,000 mg PO QPM #180 tabs 05/11/22 [Rx Last Taken Unknown] nystatin 100,000 unit/gram topical powder 1 applic topical TID PRN rash #60 grams 05/18/22 [Rx Last Taken Unknown] fluticasone propionate 50 mcg/actuation nasal spray,suspension (Flonase Allergy Relief) 2 spray intranasal DAILY #15.8 mL 09/06/22 [Rx Last Taken Unknown] levonorgestrel 21 mcg/24 hours (8 yrs) 52 mg intrauterine device (Mirena) 20 mcg intrauterine DAILY 09/23/22 [History Last Taken Unknown] omeprazole 40 mg capsule,delayed release 40 mg PO DAILY 09/23/22 [History Last Taken Unknown] dulaglutide 1.5 mg/0.5 mL subcutaneous pen injector (Trulicity) 1.5 mg (0.5 mL) subcut QWEEK #2 mL 09/30/22 [Rx Last Taken Unknown] clotrimazole 1 % topical cream 1 applic topical TID #90 grams 10/27/22 [Rx Last Taken Unknown] prednisone 20 mg tablet 60 mg PO DAILY #15 TABLETS 11/05/22 [Rx Last Taken Unknown] Allergy/AdvReac Type Severity Reaction Status Date / Time gemfibrozil Allergy Severe Anaphylaxis Verified 11/05/22 15:34 Family History Aunt Arthritis Hyperlipidemia Grandmother Bleeding disorder CAD (coronary artery disease) Mother Breast cancer Cancer Uncle Colon cancer Father Diabetes Heart disease Hypertension Melanoma Cancer Surgical History gastric sleeve H/O dilation and curettage H/O oophorectomy H/O: History of colonoscopy Hx of unilateral oophorectomy Social History Smoking Status: Never smoker alcohol intake: current alcohol intake frequency: a few times a week substance use type: does not use what type of physical activity do you participate in: none ROS ROS ED Constitutional Constitutional ED: Denies chills or fever(s) Eyes Eyes: Denies blurry vision or change in vision ENT ENT ED: Denies rhinorrhea or sore throat Cardiovascular Cardiovascular: Reports chest pain; Denies palpitations Respiratory/Chest Respiratory/Chest: Reports dyspnea; Denies cough Gastrointestinal Gastrointestinal: Denies nausea or vomiting Genitourinary Genitourinary ED: Denies dysuria or hematuria Musculoskeletal Musculoskeletal: Denies back pain or neck pain Integumentary Reports rash; Denies abscess Neurologic Neurologic: Denies headache(s) or weakness Allergic/Immunologic Allergic/Immunologic ED: Reports urticaria; Denies mouth swelling or tongue swelling EXAM Physical Exam Const Vital Signs: 11/05/22 15:45 11/05/22 17:41 Temperature 98.5 F Temperature Source Oral Pulse Rate 86 76 Respiratory Rate 17 13 Blood Pressure 151/88 H 156/85 H Blood Pressure Mean 109 108 Pulse Ox 100 98 Oxygen Delivery Method Room Air Room Air Positive well nourished, well developed and obese General Appearance ED: well developed and NAD Nutritional Appearance: obese HEENT Reports moist mucous membranes Neck supple and no JVD Resp normal respiratory effort and clear to auscultation bilaterally Cardio regular rate, regular rhythm and no murmurs GI normal to inspection, nondistended, normoactive bowel sounds and non-tender Palpation: soft Extremity normal to inspection General Extremety ED: Negative for edema or tenderness General Extremity: Negative for edema Neuro oriented x3, CN's II-XII intact bilaterally and no sensory deficits noted Sensorium / Orientation: alert Motor Exam: strength 5/5 throughout Psych mental status grossly normal Skin Skin Narrative: There is urticarial rash over the face and anterior neck. There are some mild urticaria over the upper extremities. Oropharynx is clear. Airway is patent. There are no vesicles or pustules noted. There are no petechia noted. MDM MDM MDM Narrative Medical decision making narrative: Differential diagnosis includes allergic reaction, contact dermatitis, and idiopathic urticaria. Patient will be given Solu-Medrol and Benadryl. Treatment and Re-Evaluation Narrative: Better on reevaluation. Patient's urticaria have improved. Patient was given a prescription for a short course of prednisone. Patient was instructed to follow-up with her primary care physician in 5 to 7 days. Patient was instructed to stop taking the gemfibrozil. Patient understood and was agreeable with the plan. All questions were answered. Discharge Plan Triage Chief Complaint: Allergic Reaction ED Provider: Edison Gan Dx/Rx/DC Orders Clinical Impression: Urticaria, Allergic reaction caused by a drug, BMI 39.0-39.9,adult Instructions: ED General Allergic Reactions, ED Hives (Adult) Prescriptions: New prednisone 20 mg tablet 60 mg PO DAILY Qty: 15 0RF No Action (DME) blood-glucose meter [FreeStyle Lite Meter] Kit See Rx Instructions .MEDSUPPLY Qty: 1 0RF Rx Instructions: As directed, check blood glucose daily for type 2 DM (DME) FreeStyle Lite Strips Strip See Rx Instructions .MEDSUPPLY Qty: 100 3RF Rx Instructions: check blood glucose daily for type 2 DM (DME) lancets [FreeStyle Lancets] 28 gauge misc See Rx Instructions .MEDSUPPLY Qty: 200 3RF Rx Instructions: check blood glucose daily for type 2 DM (DME) blood pressure monitor Kit See Rx Instructions .MEDSUPPLY Qty: 1 0RF Rx Instructions: Check blood pressure daily for hypertension I10 estradiol 1 mg tablet 2 mg PO DAILY Label Comments: take 1 tablet by mouth once daily diclofenac sodium 1 % gel 4 g topical ONCE PRN (Reason: joint pain) Qty: 100 0RF Rx Instructions: apply to single knee, ankle, foot; for foot includes sole/toes/top of foot nystatin 100,000 unit/gram powder 1 applic topical TID PRN (Reason: rash) Qty: 60 1RF clotrimazole 1 % cream 1 applic topical TID Qty: 90 3RF omeprazole 40 mg capsule,delayed release(DR/EC) 40 mg PO DAILY Mirena 20 mcg/24 hours (8 yrs) 52 mg Intrauterine Device 20 mcg INTRAUTERINE DAILY duloxetine 60 mg capsule,delayed release(DR/EC) 60 mg PO DAILY Qty: 90 3RF levocetirizine [Xyzal] 5 mg tablet 5 mg PO QPM Qty: 90 2RF montelukast [Singulair] 10 mg tablet 10 mg PO QPM Qty: 90 2RF spironolactone 100 mg tablet 100 mg PO DAILY Qty: 90 3RF metformin 500 mg tablet extended release 24 hr 1,000 mg PO QPM Qty: 180 3RF Rx Instructions: take 2 tablets by mouth every evening fluticasone propionate [Flonase Allergy Relief] 50 mcg/actuation spray,suspension 2 spray INTRANASAL DAILY Qty: 15.8 3RF Rx Instructions: administer into each nostril Trulicity 1.5 mg/0.5 mL pen injector 1.5 mg SC QWEEK Qty: 2 3RF Primary Care Provider: Boris Enciso Referrals: Boris Enciso MD [Primary Care Provider] - 5-7 Days Disposition Disposition: Home, Self Care
[2022-11-05] MEDS: DiphenhydrAMINE 50 MG/ML Syringe 25 MG IV (16:24)
[2022-11-05] MEDS: MethylPREDNISolone 125 MG/2 ML Vial 60 MG IV (16:24)
[2022-11-05 17:41] VITALS: BP 156/85; PULSE 76; RESP 13; O2SAT 98
[2022-11-05 19:21] VITALS: BP 169/90; PULSE 80; RESP 18; O2SAT 99
== END 2022-11-05 19:34 | disposition home or self-care (01) ==
PROVIDERS: Emergency Provider Emergency Medicine; PCP Internal Medicine; Visit Provider Emergency Medicine
DX: L50.9 Urticaria, unspecified (principal); E11.9 Type 2 diabetes mellitus without complications; E78.5 Hyperlipidemia, unspecified; I10 Essential (primary) hypertension; T46.6X5A Adverse effect of antihyperlipidemic and antiarteriosclerotic drugs, initial encounter; R07.9 Chest pain, unspecified; R06.00 Dyspnea, unspecified; E66.9 Obesity, unspecified; Z79.52 Long term (current) use of systemic steroids; Z68.39 Body mass index [BMI] 39.0-39.9, adult
CPT/HCPCS: 96374; 96375; 99284

== ENCOUNTER 2022-12-22 07:49 | Day surgery (SDC) | payer BC, SELFPAY ==
[2022-12-22] VITALS (7 sets, daily range): BP systolic 116–138; BP diastolic 64–96; PULSE 65–83; RESP 16; TEMP 36.1–36.6; O2SAT 98–100; BMI 37.0
--- NOTE | 2022-12-22 08:17 | HP.PCM_ITS ---
HPI - General General Date of Admission: 12/22/22 HPI Narrative MAC CURRAN, is a 47 F who presents patient states that she needs to Protonix 40 mg p.o. daily has helped and she is no longer having some vomiting and the epigastric discomfort has improved. Patient that she only has a little bit discomfort and nausea occasionally. Office visit 11/23/22 HPI: 47-year-old female presents due to reflux and screening colonoscopy.? Patient states that she did have a sleeve gastrostomy in 2014.? Patient has been on omeprazole 40 mg daily and states she is still having some occasional vomiting after eating also some epigastric discomfort and this happens about 2 times a week.? Patient states has increased over the last 2 months.? Patient did just have COVID October 04 and her symptoms are only a sore throat.? Patient's last colonoscopy was in 2016 patient did have polyps at that time, which were benign she has bowel movements daily, denies any blood. [facility] Medical History (Updated 12/20/22 @ 09:17 by Tawny Solorio) Alcohol use Anemia Anxiety Back pain Back problem Bone fracture Bronchitis Chronic headaches Colon cancer screening CPAP (continuous positive airway pressure) dependence Diabetes Dietary restriction DVT (deep venous thrombosis) Gastric reflux GERD (gastroesophageal reflux disease) GI problem H/O blood clots H/O urinary tract infection Health care maintenance High cholesterol History of echocardiogram History of edema Hormone deficiency HTN (hypertension) Hyperlipidemia Hypertension IBS (irritable bowel syndrome) Incomplete emptying of bladder Leg cramps Migraine headache Non-smoker DIMITRI (obstructive sleep apnea) Polycystic ovaries Post-menopausal Seasonal allergies Seasonal allergies Shortness of breath on exertion Sleep apnea Vitamin deficiency Home Medications blood pressure monitor #1 ea 10/31/20 [Rx Last Taken Unknown] blood sugar diagnostic (FreeStyle Lite Strips) #100 ea 10/31/20 [Rx Last Taken Unknown] blood-glucose meter (FreeStyle Lite Meter kit) #1 ea 10/31/20 [Rx Last Taken Unknown] lancets 28 gauge (FreeStyle Lancets) #200 ea 10/31/20 [Rx Last Taken Unknown] diclofenac sodium 1 % topical gel 4 g topical ONCE PRN joint pain #100 grams 06/22/21 [Rx Last Taken Unknown] duloxetine 60 mg capsule,delayed release 60 mg PO DAILY #90 caps 01/04/22 [Rx Last Taken Unknown] montelukast 10 mg tablet (Singulair) 10 mg PO QPM #90 tabs 01/12/22 [Rx Last Taken Unknown] estradiol 1 mg tablet 2 mg PO DAILY 02/22/22 [History Last Taken Unknown] nystatin 100,000 unit/gram topical powder 1 applic topical TID PRN rash #60 grams 05/18/22 [Rx Last Taken Unknown] levonorgestrel 21 mcg/24 hours (8 yrs) 52 mg intrauterine device (Mirena) 20 mcg intrauterine DAILY 09/23/22 [History Last Taken Unknown] dulaglutide 1.5 mg/0.5 mL subcutaneous pen injector (Trulicity) 1.5 mg (0.5 mL) subcut QWEEK #2 mL 11/09/22 [Rx Last Taken Unknown] levocetirizine 5 mg tablet (Xyzal) 5 mg PO QPM #90 tabs 11/09/22 [Rx Last Taken Unknown] pantoprazole 40 mg tablet,delayed release 40 mg PO DAILY #90 tabs 11/23/22 [Rx Last Taken Unknown] sodium sul 1.479 gram-potas ch 0.188 gram-magnes sul 0.225 gram tablet (Sutab) See Rx Instructions PO PER PKG DIR #24 tabs 11/23/22 [Rx Last Taken Unknown] spironolactone 100 mg tablet 100 mg PO DAILY #90 tabs 12/01/22 [Rx Last Taken Unknown] ezetimibe 10 mg tablet 10 mg PO DAILY #60 tabs 12/06/22 [Rx Last Taken Unknown] clotrimazole 1 % topical cream 1 applic topical PRN PRN Rash 12/20/22 [History Last Taken Unknown] fluticasone propionate 50 mcg/actuation nasal spray,suspension (Flonase Allergy Relief) 2 spray intranasal DAILY PRN PRN ALLERGIES 12/20/22 [History Last Taken Unknown] metformin 500 mg tablet,extended release 24 hr 1,000 mg PO DAILY 12/20/22 [History Last Taken Unknown] Allergy/AdvReac Type Severity Reaction Status Date / Time gemfibrozil Allergy Severe Anaphylaxis Verified 12/22/22 08:14 Family History Aunt Arthritis Hyperlipidemia Grandmother Bleeding disorder CAD (coronary artery disease) Mother Breast cancer Cancer Uncle Colon cancer Father Diabetes Heart disease Hypertension Melanoma Cancer Surgical History (Updated 12/20/22 @ 09:09 by Tawny Solorio) gastric sleeve H/O dilation and curettage H/O oophorectomy H/O: History of colonoscopy History of surgical removal of skin lesion History of tubal ligation Hx of unilateral oophorectomy Social History Smoking Status: Never smoker alcohol intake: current alcohol intake frequency: a few times a week substance use type: does not use what type of physical activity do you participate in: none Past Medical/Surgical History Planned Operation Planned Operative Procedure/s: EGD, COLONOSCOPY Previous Hospitalizations/Surgeries HX Hospitalizations: No Any Problems With Anesthesia: No You/Your Family Experience Fever (Hyperthermia) With Anes: No Cholinesterase deficiency: No Cardiovascular Hx of Irregular Heartbeat and/or Afib: Yes Hx Heart Attack: No Hx Congestive Heart Failure: No Hx Rheumatic Fever: Yes Hx Hypertension: Yes (IN THE PAST/NO MEDS FOR 1 -2 YRS) Hx Internal Defibrillator: No Hx Pacemaker: No Hx Pain in Legs when Walking/Leg Cramps: No Respiratory HX of Shortness of Breath: Yes Hx Chronic Obstructive Pulmonary Disease (COPD): No Hx Asthma: No Hx Emphysema: No Hx Sleep Apnea: Yes CPAP: Yes (NONCOMPLIANT) BIPAP: No Hx Respiratory Tract Infection/Cold (presently): No Result (for STOP score): Positive Smoking Status: Never smoker Gastrointestinal Hx Gastroesophageal Reflux: Yes Controlled With Meds: Yes Hx Gastrointestinal Bleed: No Hx Ulcer: No Neurological Hx Seizures: No Hx Multiple Sclerosis: No Hx Parkinson's Disease: No Hx Head/Neck Injury: No Hx Headaches: Yes Hx Back Injury/Pain: Yes Does patient have nerve stimulator: No Blood Disorder Hx Hepatitis: No Hx Anemia: No Reproduction : No Is Patient Lactating: Yes Genitourinary Hx Renal Disease: No Hx Dialysis: No Musculoskeletal Hx Arthritis: No Hx Gout: No Endocrine Hx Diabetes: Yes Thyroid Disease: No Psycho/Social Hx Anxiety: No Hx Depression: No Hx Dementia: No Miscellaneous Hx Cancer: No Allergies gemfibrozil Allergy (Severe, Verified 12/22/22 08:14) Anaphylaxis Discharge Is Pt Admitted From a Alf, or a Correction: No Who Could Help: After D/C, Where Do you Plan to Go: Return Home Physical Exam Const alert, oriented x3 and no apparent distress HEENT normocephalic and head/scalp atraumatic Resp normal respiratory effort Cardio regular rate GI soft to palpation and non-tender; Negative for non-distended Palpation: Negative for guarding Extremity no clubbing, cyanosis or edema Neuro CN's II-XII intact bilaterally Psych mental status grossly normal Assessment & Plan Assessment/Plan (1) GERD (gastroesophageal reflux disease): (2) Personal history of colonic polyps: Surgery Risks - Colonoscopy Risks Include but are not Limited To: Risks include but are not limited to: Bleeding, perforation requiring further surgery, inability to complete colonoscopy requiring barium enema.
[2022-12-22] MEDS: Lactated Ringers 1,000 ML 15 ML IV (08:20)
--- NOTE | 2022-12-22 09:00 | COLBX_PTH ---
PATIENT: MAC CURRAN LOC: EN U#:[id number] AGE/SX: 47/F ROOM: RE12/22/[address]: Dr. Jenifer Bangura MD : 1975 BED: DIS: 12/22/2022 SPEC #: [id number] RECD: 12/22/22 13:43 STATUS: GIDEON HONORIO #: [id number] APPLE: 12/22/22 09:[address]: Jenifer Bangura DEPT: SURGICAL PATHOLOGY RECD BY: Alex Mascorro ENTERED: 12/22/22 13:44 SP TYPE: COLON BX OTHR DR: Dr. Boris Enciso MD Tissues: A - Gastric mucous membrane B - Gastric mucous membrane C - Rectum, NOS Procedures: Special Stain Group II Surgery Specimen Level IV Alcian Blue/PAS (control) HEADER OPERATION: Colonoscopy, EGD ([facility] [place]) PRE-OP DIAGNOSIS: GERD, history of colonic polyps TISSUE SUBMITTED: A ? Antrum for H. pylori and path, B - Gastroesophageal junction biopsy, C ? Rectal polyp biopsy MICROSCOPIC DIAGNOSIS A. Gastric antrum, biopsy: Chronic gastritis. See comment. B. Gastroesophageal junction, biopsy: Fragments of gastric mucosa with mild chronic inflammation. No evidence of goblet cell metaplasia. See comment. C. Rectal polyp, biopsy: Fragments of tubular adenoma. AM:marisela 12/23/2022 COMMENT A. The results of immunohistochemistry for Helicobacter pylori will be reported separately ([id number]). B. Alcian blue/PAS stain with matched control supports the above diagnosis. MICROSCOPIC DESCRIPTION Slides are reviewed. GROSS DESCRIPTION A - Received in fixative is one container labeled with the patient's name and designated antrum biopsy. The specimen consists of one irregular fragment of light colón soft tissue that measures 0.5 x 0.3 x 0.1 cm. The specimen is totally submitted in one cassette. B - Received in fixative is one container labeled with the patient's name and designated GE junction biopsy. The specimen consists of one irregular fragment of light colón soft tissue that measures 1.0 x 0.2 x 0.1 cm. The specimen is totally submitted in one cassette. C - Received in fixative is one container labeled with the patient's name and designated rectal polyp biopsy. The specimen consists of multiple irregular fragments of light colón soft tissue that in aggregate measure 1.5 x 0.6 x 0.1 cm. The specimen is totally submitted in one cassette. / SJ:rg 12/22/2022 TC:5 CPT: 07455 x3, 71733
--- NOTE | 2022-12-22 09:00 | IMM_PTH ---
PATIENT: MAC CURRAN LOC: EN U#:[id number] AGE/SX: 47/F ROOM: RE12/22/[address]: Dr. Jenifer Bangura MD : 1975 BED: DIS: 12/22/2022 SPEC #: [id number] RECD: 12/22/22 14:02 STATUS: GIDEON HONORIO #: [id number] APPLE: 12/22/22 09:[address]: Jenifer Bangura DEPT: IMMUNOHISTOCHEMISTRY RECD BY: Amairani Lyon ENTERED: 12/22/22 14:03 SP TYPE: IMMUNO OTHR DR: Dr. Boris Enciso MD Tissues: A - Stomach, NOS Procedures: H Pylori (initial) PHYSICIAN & INSTITUTION [place] [address] SPECIMEN INFORMATION: Tissue Source: A ? Antrum Clinical Info: GERD, history of colonic polyps Specimen Number: [id number] CPT code: 22674 METHODOLOGY: Deparaffinized sections of prefer/formalin-fixed tissue or PAP/DQ stained slides are incubated with monoclonal/polyclonal antibodies/oligonucleotide probes. Localization is made via biotin free immunoperoxidase method. Appropriate controls are performed and reacted as expected. Results on target cell population are indicated in the following table: RESULTS: ANTIBODY / CLONE RESULT Block A H Pylori (polyclonal) negative These tests were developed and their performance characteristics determined by [facility]. They may not have been cleared or approved by the U.S. Food and Drug Administration. The FDA has determined that such clearance or approval is not necessary. The above immunohistochemical/dualISH markers are ordered and reviewed by the Pathologist. INTERPRETATION: A. Antrum, biopsy: Negative for Helicobacter pylori organisms. AM:marisela 12/23/2022
[2022-12-22 09:21] LABS: Bedside Glucose 117 mg/dL (74-106)
--- NOTE | 2022-12-22 11:10 | OP.EGD_ITS ---
Patient Name: Ciara Santos Procedure Date: 12/22/2022 10:22 AM Date of : 1975 Age: 47 Procedure: Upper GI endoscopy Indications: Epigastric abdominal pain, Heartburn Providers: Jenifer Bangura MD Referring MD: Jenifer Bangura MD Medicines: Monitored Anesthesia Care Patient Profile: This is a 47 year old female. The patient is status-post Gastric sleeve. Complications: No immediate complications. Procedure: Pre-Anesthesia Assessment: - Prior to the procedure, a History and Physical was performed, and patient medications and allergies were reviewed. The patient's tolerance of previous anesthesia was also reviewed. The risks and benefits of the procedure and the sedation options and risks were discussed with the patient. All questions were answered, and informed consent was obtained. Prior Anticoagulants: The patient has taken no previous anticoagulant or antiplatelet agents. ASA Grade Assessment: Per anesthesia. After reviewing the risks and benefits, the patient was deemed in satisfactory condition to undergo the procedure. After obtaining informed consent, the endoscope was passed under direct vision. Throughout the procedure, the patient's blood pressure, pulse, and oxygen saturations were monitored continuously. The colonoscope was introduced through the mouth, and advanced to the second part of duodenum. The upper GI endoscopy was accomplished without difficulty. The patient tolerated the procedure well. Scope In: 10:27:10 AM Scope Out: 10:32:19 AM Total Procedure Duration Time 0 hours 5 minutes 9 seconds Findings: The Z-line was irregular and was found 40 cm from the incisors. Biopsies were taken with a cold forceps for histology. Diffuse moderately erythematous mucosa without bleeding was found in the gastric antrum. Biopsies were taken with a cold forceps for histology. Biopsies were taken with a cold forceps for Helicobacter pylori testing. The examined duodenum was normal. Impression: - Z-line irregular, 40 cm from the incisors. Biopsied. - Erythematous mucosa in the antrum. Biopsied. - Normal examined duodenum. Recommendation: - Await pathology results. - Discharge patient to home. - Resume previous diet. - Continue present medications. - Use sucralfate tablets 1 gram PO QID for 2 weeks. Procedure Code(s): --- Professional --- 00900, PT, Esophagogastroduodenoscopy, flexible, transoral; with biopsy, single or multiple Diagnosis Code(s): --- Professional --- K22.8, Other specified diseases of esophagus K31.89, Other diseases of stomach and duodenum R10.13, Epigastric pain R12, Heartburn CPT copyright 2017 [employer]. All rights reserved. The codes documented in this report are preliminary and upon pharmacy technology instructor review may be revised to meet current compliance requirements. MD Jenifer Geronimo MD 12/22/2022 11:10:15 AM This report has been signed electronically. Number of Addenda: 0 Note Initiated On: 12/22/2022 10:22 AM
--- NOTE | 2022-12-22 11:11 | OP.CCLET_ITS ---
12/22/2022 Boris Enciso MD [address] [place] [address] [place] [address] Re : Upper GI endoscopy procedure for Ciara Tom Dear Dr. Enciso This procedure was performed on Thursday, December 22, 2022. My impressions and recommendations are as follows: Impressions : - Z-line irregular, 40 cm from the incisors. Biopsied. - Erythematous mucosa in the antrum. Biopsied. - Normal examined duodenum. Recommendations : - Await pathology results. - Discharge patient to home. - Resume previous diet. - Continue present medications. - Use sucralfate tablets 1 gram PO QID for 2 weeks. My findings are described in the full procedure note, which is enclosed. If I can be of further assistance, please feel free to contact me at Doctor phone number(s): , Work: . Sincerely, MD Jenifer Geronimo MD 12/22/2022 11:10:15 AM This report has been signed electronically.
--- NOTE | 2022-12-22 11:14 | OP.COLON_ITS ---
Patient Name: Ciara Santos Procedure Date: 12/22/2022 10:32 AM Date of : 1975 Age: 47 Procedure: Colonoscopy Indications: High risk colon cancer surveillance: Personal history of colonic polyps Providers: Jenifer Bangura MD Referring MD: Jenifer Bangura MD Medicines: Monitored Anesthesia Care Patient Profile: This is a 47 year old female. The patient is status-post Gastric sleeve. Last Colonoscopy: 5 years ago. Complications: No immediate complications. Procedure: Pre-Anesthesia Assessment: - Prior to the procedure, a History and Physical was performed, and patient medications and allergies were reviewed. The patient's tolerance of previous anesthesia was also reviewed. The risks and benefits of the procedure and the sedation options and risks were discussed with the patient. All questions were answered, and informed consent was obtained. Prior Anticoagulants: The patient has taken no previous anticoagulant or antiplatelet agents. ASA Grade Assessment: Per anesthesia. After reviewing the risks and benefits, the patient was deemed in satisfactory condition to undergo the procedure. After I obtained informed consent, the scope was passed under direct vision. Throughout the procedure, the patient's blood pressure, pulse, and oxygen saturations were monitored continuously. The colonoscope was introduced through the anus and advanced to the cecum, identified by the appendiceal orifice, ileocecal valve and palpation. The colonoscopy was performed without difficulty. The patient tolerated the procedure well. The quality of the bowel preparation was good. Scope In: 10:33:59 AM Scope Withdrawal Time 0 hours 10 minutes 16 seconds Scope Out: 11:00:06 AM Total Procedure Duration Time 0 hours 26 minutes 7 seconds Findings: The perianal and digital rectal examinations were normal. A less than 5 mm polyp was found in the rectum. The polyp was semi-pedunculated. The polyp was removed with a hot snare. Resection and retrieval were complete. The exam was otherwise without abnormality on direct and retroflexion views. Impression: - One less than 5 mm polyp in the rectum, removed with a hot snare. Resected and retrieved. - The examination was otherwise normal on direct and retroflexion views. Recommendation: - Discharge patient to home. - Resume previous diet. - Continue present medications. - Await pathology results. - Repeat colonoscopy in 5 years for surveillance based on pathology results. Procedure Code(s): --- Professional --- 34394, PT, Colonoscopy, flexible; with removal of tumor(s), polyp(s), or other lesion(s) by snare technique Diagnosis Code(s): --- Professional --- Z86.010, Personal history of colonic polyps K62.1, Rectal polyp CPT copyright 2017 [employer]. All rights reserved. The codes documented in this report are preliminary and upon medical coder review may be revised to meet current compliance requirements. MD Jenifer Geronimo MD 12/22/2022 11:14:08 AM This report has been signed electronically. Number of Addenda: 0 Note Initiated On: 12/22/2022 10:32 AM
--- NOTE | 2022-12-22 11:15 | OP.CCLET_ITS ---
12/22/2022 Boris Enciso MD [address] [place] [address] [place] [address] Re : Colonoscopy procedure for Ciara Nelsonick Dear Dr. Enciso This procedure was performed on Thursday, December 22, 2022. My impressions and recommendations are as follows: Impressions : - One less than 5 mm polyp in the rectum, removed with a hot snare. Resected and retrieved. - The examination was otherwise normal on direct and retroflexion views. Recommendations : - Discharge patient to home. - Resume previous diet. - Continue present medications. - Await pathology results. - Repeat colonoscopy in 5 years for surveillance based on pathology results. My findings are described in the full procedure note, which is enclosed. If I can be of further assistance, please feel free to contact me at Doctor phone number(s): , Work: . Sincerely, MD Jenifer Geronimo MD 12/22/2022 11:14:08 AM This report has been signed electronically.
== END 2022-12-22 12:02 | disposition home or self-care (01) ==
LOC: EN 07:52 → AC 07:57
PROVIDERS: PCP Internal Medicine; Referring Provider Internal Medicine; Visit Provider Surgery
PROC: 0DJD8ZZ Inspection of Lower Intestinal Tract, Via Natural or Artificial Opening Endoscopic (ICD-10-PCS; CPT 45378; principal; 2022-12-22 08:55)
DX: Z12.11 Encounter for screening for malignant neoplasm of colon (principal); E11.9 Type 2 diabetes mellitus without complications; K21.9 Gastro-esophageal reflux disease without esophagitis; I10 Essential (primary) hypertension; E78.00 Pure hypercholesterolemia, unspecified; K29.50 Unspecified chronic gastritis without bleeding; K52.9 Noninfective gastroenteritis and colitis, unspecified; D12.8 Benign neoplasm of rectum; Z86.010 Personal history of colon polyps; Z79.899 Other long term (current) drug therapy; Z79.84 Long term (current) use of oral hypoglycemic drugs
CPT/HCPCS: 45385; 43239; 82962; 88305; 88313; 88342; J7120; J2405

== ENCOUNTER → 2023-01-19 | Outpatient (CLI) | payer BC, SELFPAY ==
[2023-01-19 17:07] LABS: ALB/GLOB Ratio 1.1 RATIO (0.9-2.4); AST(SGOT) 27 U/L (15-37); Alanine Aminotransfer ALT/SGPT 31 U/L (13-56); Albumin, Serum 3.5 g/dL (3.2-5.0); Alkaline Phosphatase 51 U/L (45-117); Anion Gap 4 (5-15); BUN 17 mg/dL (7-18); BUN/Creat Ratio 16.2 RATIO (10-20); Calcium,Total 9.3 mg/dL (8.5-10.1); Chloride 103 mmol/L (98-107); Cholesterol 199 mg/dL (200); Creatinine, Serum 1.05 mg/dL (0.55-1.02); EST Glomerular Filtration Rate 59 mL/min (>60); Est Glom Filt Rate - Afr Amer 72 mL/min (>60); Globulin 3.3 g/dL (2.2-4.2); Glucose 132 mg/dL (74-106); High Density Lipoprotein 60 mg/dL; Potassium 4.3 mmol/L (3.5-5.1); Protein, Total 6.8 g/dL (6.4-8.2); Sodium Level 134 mmol/L (136-145); Triglycerides 411 mg/dL
== END | disposition home or self-care (01) ==
LOC: BIMLAB 15:24
PROVIDERS: PCP Internal Medicine; Referring Provider Internal Medicine; Visit Provider Internal Medicine
DX: E78.5 Hyperlipidemia, unspecified (principal)
CPT/HCPCS: 36415; 80053; 80061

== ENCOUNTER → 2023-10-24 | Outpatient (CLI) | payer BC, SELFPAY ==
[2023-10-24 13:11] LABS: Cholesterol 202 mg/dL (200); High Density Lipoprotein 70 mg/dL; Triglycerides 315 mg/dL; Very Low Density Lipoprotein 63 mg/dL (5-40)
== END | disposition home or self-care (01) ==
LOC: BIMLAB 08:01
PROVIDERS: PCP Internal Medicine; Referring Provider Internal Medicine; Visit Provider Internal Medicine
DX: E78.5 Hyperlipidemia, unspecified (principal)
CPT/HCPCS: 36415; 80061

== ENCOUNTER → 2024-01-26 | Outpatient (CLI) | payer BC, SELFPAY ==
[2024-01-26 17:01] LABS: Absolute Neutrophil Count 5.6 X10^3/uL (2.0-7.7); Basophil# 0.07 X10^3/uL; Basophil% 0.7 % (0-1); Eosinophil# 0.08 X10^3/uL; Eosinophils% 0.8 % (0-5); Hematocrit 42.7 % (37-47); Hemoglobin 13.9 g/dL (12.0-15.0); Lymphocyte % 35.6 % (19-41); Mean Corp Hgb Conc 32.6 g/dL (32-36); Mean Corpuscular Hgb 28.4 pg (27.0-32.0); Mean Corpuscular Volume 87.1 fL (81-99); Monocyte# 0.68 X10^3/uL; Monocyte% 6.7 % (0-10); NRBC Flagged by Analyzer 0 % (0-5); Neutrophil # 5.64 X10^3/uL (2.7-7.7); Neutrophil % 55.8 % (47-70); Platelet Count 384 K/mm3 (150-450); RBC Distribution Width CV 13.2 % (11.6-14.6); RBC Distribution Width SD 42.2 fl (35.1-43.9); White Blood Count 10.1 K/mm3 (4.4-11.0)
[2024-01-26 18:15] LABS: ALB/GLOB Ratio 0.9 RATIO (0.9-2.4); AST(SGOT) 14 U/L (15-37); Alanine Aminotransfer ALT/SGPT 26 U/L (13-56); Albumin, Serum 3.5 g/dL (3.2-5.0); Alkaline Phosphatase 44 U/L (45-117); Anion Gap 8 (5-15); BUN 17 mg/dL (7-18); BUN/Creat Ratio 18.2 RATIO (10-20); Calcium,Total 9.7 mg/dL (8.5-10.1); Chloride 102 mmol/L (98-107); Creatinine, Serum 0.94 mg/dL (0.55-1.02); EST Glomerular Filtration Rate 68 mL/min (>60); Est Glom Filt Rate - Afr Amer 82 mL/min (>60); Globulin 3.8 g/dL (2.2-4.2); Glucose 88 mg/dL (74-106); Potassium 4.4 mmol/L (3.5-5.1); Protein, Total 7.3 g/dL (6.4-8.2); Sodium Level 137 mmol/L (136-145); T4 Free Direct 1.06 ng/dL (0.76-1.46); Thyroid Stim Hormone (TSH) 2.37 uIU/mL (0.358-3.74)
== END | disposition home or self-care (01) ==
LOC: BIMLAB 14:55
PROVIDERS: PCP Internal Medicine; Visit Provider Internal Medicine
DX: Z13.29 Encounter for screening for other suspected endocrine disorder (principal); E11.9 Type 2 diabetes mellitus without complications; I10 Essential (primary) hypertension
CPT/HCPCS: 36415; 80053; 84439; 84443; 85025

== ENCOUNTER → 2024-08-06 | Outpatient (CLI) | payer BC, SELFPAY ==
[2024-08-06 16:31] LABS: Absolute Lymphocyte Count 2.99 X10^3/uL (0.83-4.51); Absolute Neutrophil Count 6.7 X10^3/uL (2.0-7.7); Basophil# 0.07 X10^3/uL; Basophil% 0.7 % (0-1); Eosinophil# 0.09 X10^3/uL; Eosinophils% 0.9 % (0-5); Hematocrit 42.4 % (37-47); Hemoglobin 13.7 g/dL (12.0-15.0); Lymphocyte # 2.99 X10^3/ul (0.83-4.51); Lymphocyte % 28.4 % (19-41); Mean Corp Hgb Conc 32.3 g/dL (32-36); Mean Corpuscular Hgb 28.8 pg (27.0-32.0); Mean Corpuscular Volume 89.1 fL (81-99); Mean Platelet Vol. 11.2 fl (6.2-12.0); Monocyte# 0.64 X10^3/uL; Monocyte% 6.1 % (0-10); NRBC Flagged by Analyzer 0 % (0-5); Neutrophil # 6.69 X10^3/uL (2.7-7.7); Neutrophil % 63.4 % (47-70); Platelet Count 402 K/mm3 (150-450); RBC Distribution Width CV 14.2 % (11.6-14.6); RBC Distribution Width SD 46.1 fl (35.1-43.9); Red Blood Count 4.76 M/mm3 (4.2-5.4); White Blood Count 10.5 K/mm3 (4.4-11.0)
[2024-08-06 16:50] LABS: AST(SGOT) 14 U/L (15-37); Alanine Aminotransfer ALT/SGPT 27 U/L (13-56); Albumin, Serum 3.5 g/dL (3.2-5.0); Alkaline Phosphatase 47 U/L (45-117); Anion Gap 7 (5-15); BUN 16 mg/dL (7-18); BUN/Creat Ratio 16.2 RATIO (10-20); Calcium,Total 9.3 mg/dL (8.5-10.1); Chloride 102 mmol/L (98-107); Creatinine, Serum 0.98 mg/dL (0.55-1.02); EST Glomerular Filtration Rate 63 mL/min (>60); Est Glom Filt Rate - Afr Amer 77 mL/min (>60); Globulin 3.5 g/dL (2.2-4.2); Glucose 127 mg/dL (74-106); Potassium 4.3 mmol/L (3.5-5.1); Sodium Level 137 mmol/L (136-145)
== END | disposition home or self-care (01) ==
LOC: BIMLAB 14:03
PROVIDERS: PCP Internal Medicine; Referring Provider Internal Medicine; Visit Provider Internal Medicine
DX: E11.69 Type 2 diabetes mellitus with other specified complication (principal)
CPT/HCPCS: 36415; 80053; 85025

== ENCOUNTER → 2024-10-22 | Outpatient (CLI) | payer BC, SELFPAY | END | disposition home or self-care (01) | LOC: LABSPEC 15:34 | PROVIDERS: PCP Internal Medicine; Referring Provider Nurse Practitioner Family; Visit Provider Nurse Practitioner Family | DX: R30.0 Dysuria (principal) | CPT/HCPCS: 87086; 87088 ==

== ENCOUNTER → 2025-04-22 | Outpatient (CLI) | payer BC, SELFPAY ==
[2025-04-22 17:08] LABS: Hematocrit 42.2 % (37-47); Hemoglobin 13.9 g/dL (12.0-15.0); Immature Granulocytes Count 0.020 X10^3/uL (0.0-0.0); Mean Corp Hgb Conc 32.9 g/dL (32-36); Mean Corpuscular Volume 86.8 fL (81-99); Mean Platelet Vol. 11.3 fl (6.2-12.0); NRBC Flagged by Analyzer 0 % (0-5); Platelet Count 396 K/mm3 (150-450); RBC Distribution Width CV 13.3 % (11.6-14.6); RBC Distribution Width SD 42.1 fl (35.1-43.9); Red Blood Count 4.86 M/mm3 (4.2-5.4); White Blood Count 10.3 K/mm3 (4.4-11.0)
[2025-04-22 17:20] LABS: AST(SGOT) 19 U/L (<=31); Alanine Aminotransfer ALT/SGPT 19 U/L (<=34); Albumin, Serum 4.2 g/dL (3.5-5.0); Alkaline Phosphatase 49 U/L (35-104); Anion Gap 12 (5-15); BUN 14 mg/dL (4-19); BUN/Creat Ratio 14.4 RATIO (10-20); Calcium,Total 9.5 mg/dL (7.6-11.0); Carbon Dioxide 25.3 mmol/L (21.0-32.0); Chloride 100 mmol/L (98-108); Cholesterol 201 mg/dL (<=200); Globulin 2.7 g/dL (2.2-4.2); Glucose 134 mg/dL (70-99); Low Density Lipoprotein Calc. 42 mg/dL; Potassium 4.4 mmol/L (3.3-5.1); Triglycerides 479 mg/dL; Very Low Density Lipoprotein 96 mg/dL (5-40); cholesterol:hdl ratio screen 3.16
== END | disposition home or self-care (01) ==
LOC: BIMLAB 14:53
PROVIDERS: PCP Internal Medicine; Referring Provider Internal Medicine; Visit Provider Internal Medicine
DX: E11.69 Type 2 diabetes mellitus with other specified complication (principal); I10 Essential (primary) hypertension
CPT/HCPCS: 36415; 80053; 80061; 85025